=== PATIENT | female | born 1990 | race Caucasian/White ===

== ENCOUNTER 2016-11-15 03:37 | Inpatient (IN) | payer BC ==
[~2016-11-15] VITALS: Ht 165.1 cm; Wt 65.0 kg
[2016-11-20] MEDS ORDERED: LACTATED RINGER'S 1000ML 1,000 ML IV PRN (11:19)
[2016-11-20] MEDS ORDERED: PRENTAB26 PO (11:24)
[2016-11-20 11:26] VITALS: Ht 165.1 cm; Wt 65.0 kg
[2016-11-20 11:50] LABS: HEMATOCRIT 36.6 % (37-47); MEAN CELL VOLUME 93.1 fL (80-100); MEAN CORPUSCULAR HEMOGLOBIN 32.6 pg (25-34); PLATELET COUNT 175 K/uL (130-400); RED BLOOD COUNT 3.93 M/uL (4.2-5.4); WHITE BLOOD COUNT 7.56 K/uL (4.8-10.8)
--- NOTE | 2016-11-20 12:02 | Progress Note ---
Progress Note Date of Service Nov 20, 2016. Progress Note Admit Note 26 F P0000 at 40.5 weeks admitted for induction of labor for post-dates. GBS negative. FHT Cat 1. Cervix 2/50/-3/anterior/soft. EFW [address] Cytotec vaginally for cervical ripening.
[2016-11-20] MEDS ORDERED: MISOPROSTOL 25 MCG TAB PV STA (12:08)
--- NOTE | 2016-11-20 12:18 | Progress Note ---
Progress Note Date of Service Nov 20, 2016. Progress Note Cytotec 25 mcg placed vaginally. [facility] Cat 1
[2016-11-20] MEDS: LACTATED RINGER'S 1000ML 1,000 ML IV SCH ×2 (13:34→14:49)
--- NOTE | 2016-11-20 14:35 | Progress Note ---
Progress Note Date of Service Nov 20, 2016. Progress Note patient with mild tachysystole with variable deceleration down to 80's with food recovery. Cervix now2.5/80/-3. Will give dose of Terbutaline and continue IV fluids and place patient on side. FHT now Cat 1.
[2016-11-20] MEDS ORDERED: TERBUTALINE SULFATE 1 MG/ML VIAL SQ ONE (14:45)
--- NOTE | 2016-11-20 18:35 | Progress Note ---
Progress Note Date of Service Nov 20, 2016. Progress Note Cervix 2-3/70/-3 FHT Cat 1 pain rated as 5 Stadol 1 mg IV now
[2016-11-20] MEDS ORDERED: BUTORPHANOL TARTRATE 1 MG/ML VIAL IV PRN (18:45)
[2016-11-20] MEDS ORDERED: EpHEDrine SULFATE INJ 50 MG/ML AMP ONE (19:50)
[2016-11-20] MEDS ORDERED: BUPIVACAINE 0.25% 30 ML VIAL ONE ×2 (19:50→21:36)
[2016-11-20] MEDS ORDERED: FENTANYL 2MCG/ML ROPIV 1.25MG/ML 100ML BAG EPI ONE (19:51)
[2016-11-20] MEDS ORDERED: FENTANYL CITRATE INJ 50 MCG/1 ML 2 ML VIAL ONE (19:51)
[2016-11-20] MEDS ORDERED: NALOXONE HCL INJ 1 MG in SODIUM CHLORIDE 0.9% 1000ML 1,000 ML IV PRN (20:36)
[2016-11-20] MEDS ORDERED: LACTATED RINGER'S 1000ML 500 ML IV PRN (20:36)
[2016-11-20] MEDS ORDERED: DiphenhydrAMINE HCL 50 MG/ML VIAL IV PRN (20:45)
[2016-11-20] MEDS ORDERED: EpHEDrine SULFATE INJ 50 MG/ML AMP IV PRN (20:45)
[2016-11-20] MEDS ORDERED: FENTANYL 2MCG/ML ROPIV 1.25MG/ML 100ML BAG EPI PRN (20:45)
[2016-11-20] MEDS ORDERED: ONDANSETRON INJ 2 MG/ML 2 ML VIAL IV PRN (20:45)
[2016-11-20] MEDS ORDERED: NALBUPHINE HCL INJ 10 MG/ML AMP IV PRN (20:45)
[2016-11-20] MEDS ORDERED: NALOXONE HCL INJ 0.4 MG/1 ML VIAL/CARP IV PRN (20:45)
[2016-11-21] MEDS ORDERED: OXYTOCIN 30 UNITS/500ML NSS IV ONE (00:50)
[2016-11-21] MEDS ORDERED: LACTATED RINGER'S 1000ML 1,000 ML IV SCH (02:42)
[2016-11-21] MEDS ORDERED: HYDROCORTISONE ACETATE 25 MG SUPP PR PRN (02:45)
[2016-11-21] MEDS ORDERED: SUPERCREAM 0.870 % 15GM JAR EXT PRN (02:45)
[2016-11-21] MEDS ORDERED: LANOLIN OINT EXT PRN ×2 (02:45)
[2016-11-21] MEDS ORDERED: BENZOCAINE 20% AER SPR 82.5 GM CAN EXT PRN (02:45)
[2016-11-21] MEDS ORDERED: ACETAMINOPHEN 325 MG TAB PO PRN (02:45)
[2016-11-21] MEDS ORDERED: ACETAMINOPHEN/CODEINE 300/30MG TAB PO PRN ×2 (02:45)
[2016-11-21] MEDS ORDERED: DIPHTHERIA/TETANUS/PERTUSSIS 0.5 ML SYR/VIAL IM. ONE (02:45)
[2016-11-21] MEDS ORDERED: OXYTOCIN 30 UNITS/500ML NSS IV PRN (02:45)
[2016-11-21] MEDS ORDERED: OXYCODONE/ACETAMINOPHEN 5-325 TAB PO PRN (02:45)
[2016-11-21] MEDS ORDERED: MEASLES, MUMPS & RUBELLA VIRUS VIAL SQ. ONE (02:45)
--- NOTE | 2016-11-21 02:51 | Progress Note ---
Progress Note Date of Service Nov 21, 2016. Progress Note Delivery Note live female over intact perineum MICHELLE with Apgars 9/9 weight pending. Delayed cord blood clamping followed by cord blood and spontaneously delivery of intact placenta. No tears. EBL 200 ml. Final sponge and instrument count are correct. Mom and baby stable.
[2016-11-21 05:40] VITALS: BP 123/69; PULSE 96; TEMP 36.6
[2016-11-21] MEDS: FERROUS SULFATE 325 MG TAB PO SCH (07:55)
[2016-11-21] MEDS: PRENATAL VITAMIN TAB PO SCH (07:55)
[2016-11-21] MEDS: DOCUSATE SODIUM 100 MG CAP PO SCH ×2 (07:56→19:39)
[2016-11-21 08:00] VITALS: BP 130/78; PULSE 92; TEMP 36.4
[2016-11-21] MEDS: IBUPROFEN 600 MG TAB PO PRN ×2 (08:17→18:41)
--- NOTE | 2016-11-21 08:48 | Anesthesia Procedure Note ---
Anesthesia Epidural Removal Nt Date & Time Nov 21, 2016 at 08:48 Vital Signs Pain Intensity: 2.0 Vital Signs Past 12 Hours Date Time Temp Pulse Resp B/P Pulse Ox O2 Delivery O2 Flow Rate FiO2 11/21/16 05:43 Room Air 11/21/16 05:40 36.6 96 20 123/69 Room Air Notes Mental Status: alert / awake / arousable, participated in evaluation Nausea / Vomiting: adequately controlled Pain: adequately controlled Airway Patency, RR, SpO2: stable & adequate BP & HR: stable & adequate Hydration State: stable & adequate Neuraxial Anesthesia: was administered Anesthetic Complications: no major complications apparent, pt satisfied with anesthetic care Epidural: removed without complications, with tip intact
[2016-11-21 12:05] VITALS: BP 123/71; PULSE 76; TEMP 36.5
[2016-11-21 15:30] VITALS: BP 133/81; PULSE 91; TEMP 36.6
[2016-11-21 20:00] VITALS: BP 131/88; PULSE 111; TEMP 36.6
[2016-11-22 00:01] VITALS: BP 128/80; PULSE 90; TEMP 37
[2016-11-22 07:15] LABS: HEMATOCRIT 33.4 % (37-47)
[2016-11-22 07:28] VITALS: BP 112/68; PULSE 76; TEMP 36.5; O2SAT 96
[2016-11-22] MEDS: PRENATAL VITAMIN TAB PO SCH (08:09)
[2016-11-22] MEDS: DOCUSATE SODIUM 100 MG CAP PO SCH (08:09)
[2016-11-22] MEDS: IBUPROFEN 600 MG TAB PO PRN ×2 (08:09→13:57)
[2016-11-22] MEDS: FERROUS SULFATE 325 MG TAB PO SCH (08:09)
--- NOTE | 2016-11-22 09:27 | Discharge Instructions ---
Discharge Instructions Date of Service Nov 22, 2016. Admission Reason for Admission: Induction Discharge Discharge Diagnosis / Problem: Vaginal Delivery Discharge Goals Goal(s): Routine recovery after delivery Medications Continue Dispensed Medications: supercream, dermaplast, tucks, lansinoh Activity Recommendations Activity Limitations: per Instructions/Follow-up section . Instructions / Follow-Up Instructions / Follow-Up ACTIVITY RECOMMENDATIONS: * Gradual return to full activity over the next 2-3 weeks. * No lifting - nothing heavier than baby over the next 2-3 weeks. * Do not engage in vigorous exercise, sexual activity or sports until cleared by your physician. * Do not drive or operate any motorized equipment until cleared by your physician. * You may shower/bathe daily. BREAST CARE: If you are not breast feeding: * Wear a supportive bra 24 hours a day for one to two weeks. * Avoid stimulating your breasts and nipples as much as possible during the first few weeks after delivery. * When taking a shower, have the warm water hit your back, not breasts. * When your breasts feel full, apply ice packs. Usually three to four times a day helps ease the discomfort. * Take a mild pain medication (Tylenol/Motrin) when you are uncomfortable. If breast feeding: * Use breast milk to lubricate nipples. Lansinoh cream may be used for sore nipples. You do not need to remove cream prior to breast feeding. If using a different brand of cream, check the label for directions regarding removal of cream prior to nursing. * Wear a supportive bra. * If having problems with breasts or breast feeding, call a [employer] consultant or your health care provider. EPISIOTOMY CARE: After delivery, if you have an episiotomy (stitches), the following steps will ease discomfort and aid healing. * For the first 24 hours after delivery, place ice packs next to your episiotomy to help reduce swelling. * After the first 24 hour-period, sitz baths, either portable or in the tub, are suggested. A shower with a shower arm sprayed over the episiotomy may be comforting. * Iris care should be done after each voiding and bowel movement. Squirt warm water from a plastic bottle over the perineum (region of the body between the anus and urinary opening) and pat dry. * Use Dermoplast to ease discomfort. Shake container. [place] directly over the episiotomy. * Place a Tucks on a clean sanitary pad next to your episiotomy. OVER THE COUNTER MEDICATION: * For discomfort or pain, you may use Acetaminophen (Tylenol), Ibuprofen (Advil ), or Naproxen (Aleve) following the package directions. * For constipation you may use Colace following the package directions. SPECIAL CARE INSTRUCTIONS: When you are discharged from the hospital, it is important for you to follow the instructions listed below: * During the first week at home, you should be able to care for yourself and your baby. In addition, the usual light household activities are encouraged. * Limit your activities to the way you feel. Do not try to clean the house or move furniture. Be sensible. * If you actively engage in sports and have done so up until the time of your delivery, you may resume these activities as soon as you feel able. This may take up to one month or even longer. Use good judgment. * Continue to take your vitamins for at least six weeks after the of your baby. * Your diet need not be limited unless you were on a special diet before your delivery. Breast-feeding mothers need around 2500 calories per day and at least 64-80 ounces of fluid per day (8 to 10 glasses). * You should eat foods from the four major food groups. Crash diets or fad diets are to be avoided. Eating lean meats, fresh fruits and vegetables, low-fat dairy products, high fiber foods and a regular exercise program, will help you get back to your pre- weight without putting your health at risk. * Constipation is sometimes a problem after delivery. Take a mild laxative as needed. If breast feeding, Milk of Magnesia is acceptable to use. You may use a suppository or Fleets enema if no episiotomy. * A daily shower or tub bath is suggested. Be sure to thoroughly and gently dry the perineum. * A bloody vaginal discharge will usually continue until around four weeks post . A small amount of bleeding may continue for as long as six weeks. Vaginal discharge changes from the bright red bleeding after delivery to pink then brownish and finally yellowish-pink before becoming white and disappearing. * Bleeding may increase with activity. Your first period may come in 4-8 weeks. If you are breast feeding, your period may be delayed even longer. * [place] (sex) can begin whenever both you and your partner feel comfortable and do not have any form of genital infection. It is recommended that you wait until after your return appointment and discuss with your physician. If you have questions, please talk to your health care practitioner. A condom should be used to prevent infection and . * Foreplay, gentle intercourse and lubrication is very important the first several times to prevent pain. A water-based lubricant such as K-Y jelly or Astroglide may be used. * Tampons may be used six weeks after delivery. * Douching should be avoided for 6 weeks after delivery. * If you have RH negative blood and your baby is RH positive, you will receive RHOGAM by injection prior to discharge. The nurse will give you a card to keep with you that has the date and place that you received RHOGAM after delivery. * During your care, you had a Rubella screen done to check for the presence of rubella antibodies in your blood. If your test was negative, you will receive a Rubella vaccine prior to discharge. This vaccine may cause a fever, soreness at the injection site and flu-like symptoms. If these symptoms persist, notify your health care practitioner. is not advised for three months after a Rubella vaccine. There is a higher chance of having a baby with defects if conceived within three months of getting the vaccine. * If you were discharged 24 hours from delivery or before 48 hours: Visiting nurses will come to your home 48 hours after discharge to assess you and your baby. The visiting nurse will meet with you while you are in the hospital to arrange a time and get directions to your home. * Verbalizes understanding of car seat law as reviewed with patient nursing. * Car Seat hand-out given and reviewed with patient by nursing. * Shaken baby information reviewed with patient by nursing. Call you doctor if: * Heavy bleeding (saturating several pads an hour) or passing clots the size of your fist. * A fever >101 degrees F (38.3 degrees C) on two occasions four hours apart and/or chills. * Unusual pain in the pelvic or vaginal areas. * "Baby Blues" lasting longer than two weeks. If you have any questions or concerns, call your health care practitioner at . FOLLOW-UP VISIT: * Please call the office at to schedule a 6 week examination. It is important you keep this appointment. * It is important for you to make arrangements for either yearly or twice yearly check-ups thereafter. Current Hospital Diet Patient's current hospital diet: Regular OB Diet Discharge Diet Recommended Diet: Regular OB Diet Pending Studies Studies pending at discharge: no Medical Emergencies . Who to Call and When: Medical Emergencies: If at any time you feel your situation is an emergency, please call 911 immediately. . Non-Emergent Contact Non-Emergency issues call your: Food Safety Specialist . . "Provider Documentation" section prepared by Ken Haile. VTE Core Measure Inpt VTE Proph given/why not?: Treatment not indicated
--- NOTE | 2016-11-22 09:29 | OB/GYN Progress Note ---
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 Subjective conversation w/ patient, physical exam Ambulation: ambulating normally Voiding: no voiding problems Passing Gas: Yes Diet Tolerance: Regular Diet Lochia: Small Feeding Type: Bottle Feeding Pain: 09/24 Notes: Pain well controlled. Tolerating regular diet. Ambulating without difficulty. Would like to go home today. Objective Vital Signs Date Time Temp Pulse Resp B/P Pulse Ox O2 Delivery O2 Flow Rate FiO2 11/22/16 08:10 Room Air 11/22/16 07:28 36.5 76 16 112/68 96 Room Air 11/22/16 00:01 Room Air 11/22/16 00:01 37.0 90 18 128/80 Room Air 11/21/16 20:00 36.6 111 20 131/88 Room Air 11/21/16 15:30 Room Air 11/21/16 15:30 36.6 91 20 133/81 Room Air 11/21/16 12:05 36.5 76 20 123/71 Physical Exam General Appearance: WELL-APPEARING Respiratory/Chest: chest non-tender, lungs clear Cardiovascular: regular rate, rhythm Abdomen: normal bowel sounds, soft Fundus: Firm Extremities: normal range of motion, non-tender Laboratory Results Last 24 Hours Test 11/22/16 06:50 Hemoglobin 11.2 g/dL Hematocrit 33.4 % Assessment and Plan Post- Day Number: 1 Continue Routine Care: -D/C home today -F/U in 6 weeks.
[2016-11-22 12:43] VITALS: BP_DIAS 68; PULSE 76; TEMP 36.5
[2016-11-22] MEDS ORDERED: BISACODYL 5 MG TABEC PO SCH (20:00)
[2016-11-23] MEDS ORDERED: BISACODYL 10 MG SUPP PR PRN (07:00)
== END 2016-11-22 14:45 | disposition home or self-care (01) | DRG 774 ==
LOC: C.LD 11-20 11:10 → C.OBG 11-21 05:23
PROVIDERS: ADMIT Obstetrics & Gynecology; ATTEND Obstetrics & Gynecology
PROC: 10E0XZZ Delivery of Products of Conception, External Approach (ICD-10-PCS; principal; 2016-11-21)
PROC: 3E0P7GC Introduction of Other Therapeutic Substance into Female Reproductive, Via Natural or Artificial Opening (ICD-10-PCS; principal; 2016-11-21)
DX: O48.0 Post-term pregnancy (principal); O99.42 Diseases of the circulatory system complicating childbirth; R00.0 Tachycardia, unspecified; Z37.0 Single live birth; Z3A.40 40 weeks gestation of pregnancy

== ENCOUNTER 2019-09-17 03:25 | Inpatient (IN) ==
[2019-09-17] MEDS ORDERED: OXYTOCIN 30 UNITS/500 ML BAG IV PRN ×3 (03:49→08:50)
[2019-09-17] MEDS: LACTATED RINGER'S 1,000 ML IV PRN ×2 (04:00→08:06)
[2019-09-17 04:13] LABS: Hematocrit (blood only) 36.1 % (37-47); Hemoglobin 12.2 g/dL (12.0-16.0); Mean Corpuscular Hemoglobin 32.7 pg (25-34); Mean Corpuscular Volume 96.8 fL (80-100); Mean Platelet Volume 10.7 fL (7.4-10.4); Platelet Count 164 K/uL (130-400); RDW Coefficient of Variation 13.9 % (11.5-14.5); RDW Standard Deviation 48.9 fL (36.4-46.3); Red Blood Count 3.73 M/uL (4.2-5.4); White Blood Count 10.26 K/uL (4.8-10.8)
[2019-09-17 04:15] LABS: Mean Corpuscular Hgb Conc 33.8 g/dL (32-36)
[2019-09-17] MEDS ORDERED: fentaNYL citrate 100 MCG/2 ML VIAL ONE (04:36)
[2019-09-17] MEDS ORDERED: BUPIVACAINE 0.25% 30 ML VIAL ONE (04:36)
[2019-09-17] MEDS ORDERED: ePHEDrine sulfate 50 MG/ML AMP ONE (04:36)
[2019-09-17] MEDS ORDERED: fentaNYL 2MCG/ML ROPIV 1.25MG/ML 100 ML BAG EPI ONE (04:37)
--- NOTE | 2019-09-17 04:42 | Obstetrical Progress Note ---
Date of Service September 17, 2019 Subjective Admit Note 28 F P1021 at 40.1 admitted in active labor. Cervix /80/-2/vertex/intact. GBS is negative. FHT Cat 1. will admit in active labor. Patient requesting epidural for pain. Results & Data Vital Signs (Past 12 Hours) Vital Signs Temp Pulse Resp BP 09/17/19 04:10 36.6 C 78 16 130/74 09/17/19 03:34 78 130/74
[2019-09-17] MEDS ORDERED: fentaNYL 2MCG/ML ROPIV 1.25MG/ML 100 ML BAG EPI PRN (05:02)
[2019-09-17] MEDS ORDERED: NALOXONE HCL 1 MG in SODIUM CHLORIDE 0.9% 1000ML 1,000 ML IV PRN (05:02)
[2019-09-17] MEDS ORDERED: DiphenhydrAMINE HCL 50 MG/ML VIAL IV PRN (05:02)
[2019-09-17] MEDS ORDERED: NALBUPHINE HCL INJ 10 MG/ML AMP IV PRN (05:02)
[2019-09-17] MEDS ORDERED: ONDANSETRON INJ 2 MG/ML 2 ML VIAL IV PRN (05:02)
[2019-09-17] MEDS ORDERED: ePHEDrine sulfate 50 MG/ML AMP IV PRN (05:02)
[2019-09-17] MEDS ORDERED: NALOXONE HCL 0.4 MG/1 ML VIAL/CARP IV PRN (05:02)
--- NOTE | 2019-09-17 05:03 | Anesthesiology Consultation ---
Date of Service September 17, 2019 Assessment & Plan Chart Review Chart Review: Patient NOT seen in Pre Admission Testing and Acceptable Risk for Labor Epidural Consults Requested none ASA ASA2 Proposed Anesthesia Anesthesia Type: Labor Epidural Risk / Benefits Reviewed With: PT / POA / Parent / Guardian, Accepts Plan and Informed Consent Obtained History Height/Weight Height: 5 ft 5 in Weight: 66.224 kg Allergies Allergy/AdvReac Type Severity Reaction Status Date / Time No Known Allergies Allergy Verified 09/17/19 04:06 Medications Home Medications Medication Instructions Recorded Confirmed Last Taken vit-iron fum-folic ac 1 tab PO DAILY 09/15/18 09/17/19 09/16/19 08:00 [ Vitamin] aspirin [Aspirin Low Dose] 81 mg PO DAILY 09/17/19 09/17/19 09/16/19 08:00 NPO Date Last Intake of Fluids: 09/17/19 Time Last Intake of Fluids: 03:00 Date Last Intake of Solids: 09/16/19 Time Last Intake of Solids: 18:00 Past Medical History Medical History (Updated 09/17/19 @ 04:06 by Tiffany Ortega RN) Miscarriage No pertinent past medical history Thyroid nodule biopsy yearly Exercise / Class Metabolic Activity II 4-5 Yardwork/Stairs/Walk up hill Past Surgical History Surgical History (Updated 09/17/19 @ 04:06 by Tiffany Ortega RN) [place] teeth extracted 2010 Past Anesthesia History No Hx of Anesthesia Complications and No Family Hx of Anesthesia Complications History of PONV No Hx of PONV and No Hx of Motion Sickness Social History Smoking Status: Never smoker Hx Alcohol Use: No Hx Substance Use: No substance use type: does not use Physical Exam Vital Signs Last Vital Signs Temp 36.6 C 09/17/19 04:10 Pulse 93 H 09/17/19 05:22 Resp 16 09/17/19 04:10 BP 117/73 09/17/19 05:22 Pulse Ox 100 09/17/19 05:19 ENMT Mouth: no dentition abnormality Thyromental Distance: > or= 3.5 Finger Breadths Mallampati Class: II Neck normal visual inspection Respiratory normal respiratory effort Auscultation: lungs clear to auscultation bilaterally Cardiovascular Rate/Rhythm: regular rate and regular rhythm Psychiatric Orientation: alert Testing Laboratory Results 09/17/19 04:01
--- NOTE | 2019-09-17 06:01 | Obstetrical Progress Note ---
Date of Service September 17, 2019 Physical Exam Genitourinary: OB Exam Abdomen: + estimated weight (6.5 to 7 lbs,) Manual OB Exam: + cervical dilation 6 cm, + cervical effacement 80%, + station - 2 and + amniotic fluid clear OB Exam Monitor Tracing: + external FHT monitor used, + external uterine monitor used and + category I epidural working Results & Data Vital Signs (Past 12 Hours) Vital Signs Temp Pulse Resp BP Pulse Ox 09/17/19 05:54 104 H 96 09/17/19 05:52 124 H 94 09/17/19 05:49 112 H 114/68 96 09/17/19 05:46 105 H 110/65 09/17/19 05:44 81 94 09/17/19 05:43 108 H 115/68 93 09/17/19 05:40 86 119/68 09/17/19 05:39 85 95 09/17/19 05:37 80 126/72 09/17/19 05:36 79 94 09/17/19 05:34 92 H 122/65 95 09/17/19 05:31 85 134/63 09/17/19 05:29 82 97 09/17/19 05:28 86 119/60 09/17/19 05:25 100 H 125/74 09/17/19 05:24 95 H 99 09/17/19 05:22 93 H 117/73 09/17/19 05:19 85 120/72 100 09/17/19 05:16 96 H 121/69 09/17/19 05:14 75 100 09/17/19 05:13 84 128/69 09/17/19 05:10 94 H 147/80 H 09/17/19 05:09 89 100 09/17/19 05:04 93 H 100 09/17/19 04:10 36.6 C 78 16 130/74 09/17/19 03:34 78 130/74
--- NOTE | 2019-09-17 07:32 | Obstetrical Progress Note ---
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 40.1 wks Admitted for active labor, received edictal for pain, comfortable VSS Afebrile FHR categ I [place] ctxs q 2 min VE; 8/ 80%/ 0 Continue to monitor Anticipate Results & Data Vital Signs (Past 12 Hours) Vital Signs Temp Pulse Resp BP Pulse Ox 09/17/19 07:24 109 H 100 09/17/19 07:21 107 H 117/74 09/17/19 07:19 106 H 99 09/17/19 07:14 94 H 99 09/17/19 07:09 84 97 09/17/19 07:08 106 H 115/75 09/17/19 07:04 110 H 98 09/17/19 07:02 36.7 C 20 09/17/19 06:59 114 H 97 09/17/19 06:54 101 H 96 09/17/19 06:52 93 H 119/72 09/17/19 06:49 114 H 96 09/17/19 06:44 87 98 09/17/19 06:39 95 H 98 09/17/19 06:38 93 H 117/74 09/17/19 06:34 114 H 99 09/17/19 06:29 112 H 96 09/17/19 06:24 93 H 98 09/17/19 06:22 110 H 113/71 09/17/19 06:19 101 H 96 09/17/19 06:14 124 H 96 09/17/19 06:09 100 H 96 09/17/19 06:07 103 H 101/74 09/17/19 06:04 116 H 96 09/17/19 06:00 120 H 94 09/17/19 05:59 110 H 97 09/17/19 05:54 104 H 96 09/17/19 05:52 124 H 94 09/17/19 05:49 112 H 114/68 96 09/17/19 05:46 105 H 110/65 09/17/19 05:44 81 94 09/17/19 05:43 108 H 115/68 93 09/17/19 05:40 86 119/68 09/17/19 05:39 85 95 09/17/19 05:37 80 126/72 09/17/19 05:36 79 94 09/17/19 05:34 92 H 122/65 95 09/17/19 05:31 85 134/63 09/17/19 05:29 82 97 09/17/19 05:28 86 119/60 09/17/19 05:25 100 H 125/74 09/17/19 05:24 95 H 99 09/17/19 05:22 93 H 117/73 09/17/19 05:19 85 120/72 100 09/17/19 05:16 96 H 121/69 09/17/19 05:14 75 100 09/17/19 05:13 84 128/69 09/17/19 05:10 94 H 147/80 H 09/17/19 05:09 89 100 09/17/19 05:04 93 H 100 09/17/19 04:10 36.6 C 78 16 130/74 09/17/19 03:34 78 130/74
[2019-09-17] MEDS ORDERED: ACETAMINOPHEN 325 MG TAB PO PRN (08:50)
[2019-09-17] MEDS ORDERED: BENZOCAINE 20% AER SPR 82.5 GM CAN EXT PRN (08:50)
[2019-09-17] MEDS ORDERED: DIPHTHERIA/TETANUS/PERTUSSIS 0.5 ML SYR/VIAL IM ONE (08:50)
[2019-09-17] MEDS ORDERED: SUPERCREAM 0.870% 15 GM JAR EXT PRN (08:50)
[2019-09-17] MEDS ORDERED: HYDROCORTISONE ACETATE 25 MG SUPP PR PRN (08:50)
[2019-09-17] MEDS ORDERED: MEASLES, MUMPS & RUBELLA VIRUS VIAL SQ ONE (08:50)
[2019-09-17] MEDS ORDERED: bisacodyL 10 MG SUPP PR PRN (08:50)
--- NOTE | 2019-09-17 09:16 | Delivery Summary ---
DATE OF OPERATION: 09/17/2019 DATE OF DELIVERY: 09/17/2019 TIME : 08:38 a.m. TIME OF DELIVERY OF PLACENTA: 08:43 a.m. DETAILS OF DELIVERY: The patient was found to be fully dilated and desired to push. She pushed for about 10 minutes and delivered the head without difficulty. Shoulders were delivered with minimal traction. Baby was handed off to the mother where mouth and nose were suctioned. Cord was clamped x2 and cut at 1 minute delay and cord blood was obtained. Vagina and perineum were checked for lacerations. They were intact. No lacerations were found and then placenta was found to be in the vagina, delivered spontaneous as intact and complete. Uterus was explored, found to be empty and fundus was firm. EBL was 100 mL. Mom and baby tolerated the procedure well. At the end of the procedure, sponge, lap, instrument count was correct x2. Baby was a viable male infant, Apgars 8/10, weight is 3406 gr. No complications happened and I was present during whole procedure. I attest to the content of the Intraoperative Record and any orders documented therein. Any exceptions are noted below. MTDD
--- NOTE | 2019-09-17 09:43 | Anesthesia Procedure Note ---
Date of Service September 17, 2019 Anesthesia Post Epidural Note Vital Signs Vital Signs: Temp Pulse Resp BP Pulse Ox 98.1 F 85 20 120/57 L 100 09/17/19 07:02 09/17/19 09:30 09/17/19 09:30 09/17/19 09:30 09/17/19 08:19 Pain Intensity Abdomen: Pain Intensity: 0 Notes Mental Status: alert / awake / arousable and participated in evaluation Nausea / Vomiting: adequately controlled Pain: adequately controlled Airway Patency, RR, SpO2: stable & adequate BP & HR: stable & adequate Hydration State: stable & adequate Neuraxial Anesthesia: was administered and sensory block is resolving Anesthetic Complications: no major complications apparent and Pt Satisfied with anesthetic care Epidural: Removed without complications and With tip intact
[2019-09-17] MEDS: IBUPROFEN 600 MG TAB PO PRN ×3 (12:13→20:26)
[2019-09-17] MEDS: DOCUSATE SODIUM 100 MG CAP PO SCH (20:26)
[2019-09-18] MEDS: IBUPROFEN 600 MG TAB PO PRN ×3 (03:43→12:19)
[2019-09-18 06:39] LABS: Hematocrit (blood only) 33.3 % (37-47); Hemoglobin 11.3 g/dL (12.0-16.0); Mean Corpuscular Hemoglobin 33.3 pg (25-34); Mean Corpuscular Hgb Conc 33.9 g/dL (32-36); Mean Corpuscular Volume 98.2 fL (80-100); Mean Platelet Volume 10.8 fL (7.4-10.4); Platelet Count 144 K/uL (130-400); RDW Coefficient of Variation 14.3 % (11.5-14.5); RDW Standard Deviation 50.6 fL (36.4-46.3); Red Blood Count 3.39 M/uL (4.2-5.4); White Blood Count 7.36 K/uL (4.8-10.8)
[2019-09-18] MEDS ORDERED: PRENATAL VITAMIN 1 TAB PO SCH (08:00)
[2019-09-18] MEDS ORDERED: FERROUS SULFATE 325 MG TAB PO SCH (08:00)
--- NOTE | 2019-09-18 08:03 | Obstetrical Progress Note ---
Date of Service September 18, 2019 Subjective Patient is seen and examined. She feels well, no complaints. Ambulating without dizziness Voiding without difficulty Tolerating regular diet with out N&V Bleeding is minimal No fever/ chills/ CP/ SOB/ N&V/ Leg pain Bottle feeding without problems Vital Signs Temp Pulse Pulse Resp BP BP Pulse Ox 09/18/19 07:20 36.6 C 77 16 105/66 97 09/18/19 03:30 36.6 C 80 20 120/76 09/17/19 23:30 36.8 C 68 20 123/72 09/17/19 20:25 36.6 C 71 18 119/76 97 09/17/19 15:30 36.6 C 80 18 123/74 96 09/17/19 11:16 36.8 C 82 18 114/73 95 09/17/19 11:00 88 118/66 09/17/19 10:45 36.7 C 77 20 117/65 09/17/19 10:30 93 H 116/68 09/17/19 10:15 81 20 110/56 L 09/17/19 10:01 90 120/57 L 09/17/19 09:45 88 20 126/69 09/17/19 09:30 85 20 120/57 L 09/17/19 09:17 107 H 132/60 09/17/19 09:15 20 09/17/19 09:01 107 H 122/58 L 09/17/19 09:00 20 09/17/19 08:45 113 H 20 126/60 09/17/19 08:30 18 09/17/19 08:22 104 H 134/77 09/17/19 08:19 101 H 100 09/17/19 08:14 97 H 100 09/17/19 08:09 93 H 100 09/17/19 08:06 95 H 119/71 09/17/19 08:04 105 H 99 09/18/19 Range/Units 06:21 WBC 7.36 (4.8-10.8) K/uL RBC 3.39 L (4.2-5.4) M/uL Hgb 11.3 L (12.0-16.0) g/dL Hct 33.3 L (37-47) % MCV 98.2 (80-100) fL MCH 33.3 (25-34) pg MCHC 33.9 (32-36) g/dL RDW Std Deviation 50.6 H (36.4-46.3) fL RDW Coeff of [place] 14.3 (11.5-14.5) % Plt Count 144 (130-400) K/uL MPV 10.8 H (7.4-10.4) fL PE: General: Alert, orientedx3, NAD Abd: soft, NT, fundus firm, below Umbilicus Perineum intact, Lochia rubra minimal Ext; NT, no edema AP: 28 yo s/p , ppd# 1 VSS Afebrile doing well Continue routine care Desires d/c this afternoon after baby would be circumcised All questions were answered Discussed when to call D/C home , f/u in office Results & Data Vital Signs (Past 12 Hours) Vital Signs Temp Pulse Resp BP Pulse Ox 09/18/19 07:20 36.6 C 77 16 105/66 97 09/18/19 03:30 36.6 C 80 20 120/76 09/17/19 23:30 36.8 C 68 20 123/72 09/17/19 20:25 36.6 C 71 18 119/76 97
[2019-09-18] MEDS: DOCUSATE SODIUM 100 MG CAP PO SCH (08:24)
[2019-09-18] MEDS ORDERED: bisacodyL 5 MG TABEC PO SCH (20:00)
== END 2019-09-18 14:35 | disposition home health service (06) | DRG 807 ==
LOC: 4S1 03:25 → 4S2 11:16